=== PATIENT | male | born 1985 | race Caucasian/White ===

== ENCOUNTER 2017-05-04 20:28 | Emergency (ER) | payer SELFPAY ==
[~2017-05-04] VITALS: Ht 177.8 cm; Wt 72.6 kg
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
[2017-05-04] MEDS ORDERED: Ketorolac 60mg Inj IM ONE (20:45)
[2017-05-04] MEDS ORDERED: Norco 10mg/325mg tab ORAL ONE (20:45)
[2017-05-04] MEDS ORDERED: IBUPROFEN600 MG ORAL (21:03)
[2017-05-04 21:13] VITALS: BP 129/79
--- NOTE | 2017-05-05 13:00 | Diagnostic Imaging Report ---
Indication: Pain 3 views of the right knee were obtained. Findings: No acute fracture, malalignment, or joint effusion are identified. Joint space is relatively well-maintained. Impression: Negative for acute findings.
== END 2017-05-04 21:13 | disposition home or self-care (01) ==
LOC: EDBD 20:28 → EMR 20:55
DX: S80.01XA Contusion of right knee, initial encounter (principal); V03.90XA Pedestrian on foot injured in collision with car, pick-up truck or van, unspecified whether traffic or nontraffic accident, initial encounter; Y92.410 Unspecified street and highway as the place of occurrence of the external cause
CPT/HCPCS: 96372; 99284